=== PATIENT | female | born 1950 | race Two or more races ===

== ENCOUNTER 2020-03-13 15:52 | Emergency (ER) | payer OTHER ==
[2020-03-13 16:02] VITALS: BMI 22.0
[2020-03-13] MEDS ORDERED: FAMOTIDINE 20 MG TABLET PO ONE (16:28)
[2020-03-13] MEDS ORDERED: MAG HYDROX/AL HYDROX/SIMETH 30 ML UNIT-DOSE CUP PO ONE (16:28)
[2020-03-13 18:35] LABS: BASO % 0.7 % (0-2.0); EOS % 0.2 % (0-4.5); HEMATOCRIT 37.8 % (32.4-45.2); HEMOGLOBIN 12.3 GM/dL (10.7-15.3); LYMPH % 24.3 % (8-40); MCH 25.8 pg (25.7-33.7); MCHC 32.7 g/dl (32.0-36.0); MEAN CELL VOLUME 79.1 fl (80-96); MEAN PLT VOLUME 8.1 fl (7.5-11.1); MONO % 10.4 % (3.8-10.2); NEUT % 64.4 % (42.8-82.8); PLATELET COUNT 339 K/MM3 (134-434); RBC 4.78 M/mm3 (3.60-5.2); RDW 15.9 % (11.6-15.6); WHITE BLOOD COUNT 8.2 K/mm3 (4.0-10.0)
[2020-03-13] MEDS ORDERED: FAMOTIDINE 20 MG TABLET ONE (18:35)
[2020-03-13] MEDS ORDERED: MAG HYDROX/AL HYDROX/SIMETH 30 ML UNIT-DOSE CUP ONE (18:36)
[2020-03-13 18:47] LABS: INR 1.04 (0.83-1.09); PROTHROMBIN TIME (PATIENT) 12.8 SEC (9.7-13.0)
[2020-03-13 18:50] LABS: ACTIVATED PTT 29.9 SECONDS (25.2-36.5)
[2020-03-13 18:56] LABS: BLOOD UREA NITROGEN 5.2 mg/dL (7-18); CALCIUM 9.1 mg/dL (8.5-10.1)
[2020-03-13 18:57] LABS: ALBUMIN 3.7 g/dl (3.4-5.0)
[2020-03-13 19:00] LABS: CREATININE 0.7 mg/dL (0.55-1.3)
[2020-03-13 19:01] LABS: BILIRUBIN,TOTAL 1.5 mg/dL (0.2-1); TOT PROT 7.9 g/dl (6.4-8.2)
[2020-03-13] MEDS ORDERED: POTASSIUM CHLORIDE ORAL LIQUID 20 MEQ/15 ML PO ONE (19:11)
[2020-03-13 21:09] LABS: URINE APPEARANCE CLEAR; URINE BILIRUBIN NEGATIVE (NEGATIVE); URINE COLOR YELLOW; URINE GLUCOSE (UA) NEGATIVE (NEGATIVE); URINE KETONE NEGATIVE (NEGATIVE); URINE LEUK ESTERASE NEGATIVE (NEGATIVE); URINE NITRITE NEGATIVE (NEGATIVE); URINE PROTEIN NEGATIVE (NEGATIVE); URINE UROBILINOGEN 0.2 mg/dL (0.2-1.0)
[2020-03-13 22:02] VITALS: BP 118/80; PULSE 86; TEMP 98
== END 2020-03-13 22:52 | disposition home or self-care (01) ==
LOC: JER 15:52
DX: R06.02 Shortness of breath (principal); R10.84 Generalized abdominal pain
CPT/HCPCS: 36415; 71045-TC-FY; 71275-TC; 80053; 81003; 82272; 85025; 85379; 85610; 85730; 99285-25; Q9967